=== PATIENT | female | born 1950 | race Caucasian/White ===

== ENCOUNTER → 2023-08-09 12:54 | Outpatient (REF) | payer MEDICARE, OTHER, SELFPAY | LOC: RSP 12:54 | PROVIDERS: ATTENDING PHYSICIAN Internal Medicine Pulmonary Disease; FAMILY PHYSICIAN Internal Medicine | DX: J84.9 Interstitial pulmonary disease, unspecified (principal); J96.11 Chronic respiratory failure with hypoxia | CPT/HCPCS: 94727; 88738; 94010; 94761 ==

== ENCOUNTER → 2024-04-04 11:01 | Outpatient (REF) | payer MEDICARE, OTHER, SELFPAY | LOC: HWRAD 11:01 | PROVIDERS: ATTENDING PHYSICIAN Internal Medicine Pulmonary Disease; FAMILY PHYSICIAN Family Medicine | DX: J84.9 Interstitial pulmonary disease, unspecified (principal); J84.10 Pulmonary fibrosis, unspecified | CPT/HCPCS: 71250 ==

== ENCOUNTER → 2024-04-29 12:31 | Outpatient (REF) | payer MEDICARE, OTHER, SELFPAY | LOC: RSP 12:31 | PROVIDERS: ATTENDING PHYSICIAN Internal Medicine Pulmonary Disease; FAMILY PHYSICIAN Family Medicine | DX: J84.9 Interstitial pulmonary disease, unspecified (principal); J84.10 Pulmonary fibrosis, unspecified | CPT/HCPCS: 94727; 88738; 94010; 94761 ==

== ENCOUNTER → 2024-05-05 11:19 | Outpatient (REF) | payer MEDICARE, OTHER, SELFPAY | LOC: REG 11:19 | PROVIDERS: ATTENDING PHYSICIAN Nurse Practitioner Family; FAMILY PHYSICIAN Family Medicine; OTHER PHYSICIAN Internal Medicine Cardiovascular Disease | DX: I27.20 Pulmonary hypertension, unspecified (principal); E78.2 Mixed hyperlipidemia; I27.29 Other secondary pulmonary hypertension; J84.112 Idiopathic pulmonary fibrosis; J84.9 Interstitial pulmonary disease, unspecified; M34.9 Systemic sclerosis, unspecified; Z99.81 Dependence on supplemental oxygen | CPT/HCPCS: 93005 ==

== ENCOUNTER → 2024-06-19 10:58 | Outpatient (REF) | payer MEDICARE, OTHER, SELFPAY | LOC: RAD 10:58 | PROVIDERS: ATTENDING PHYSICIAN Physician Assistant; FAMILY PHYSICIAN Family Medicine | DX: M34.9 Systemic sclerosis, unspecified (principal); J84.9 Interstitial pulmonary disease, unspecified | CPT/HCPCS: 71046 ==

== ENCOUNTER 2024-07-31 13:15 | Outpatient (RCR) | payer MEDICARE, OTHER, SELFPAY | END 2024-08-01 11:31 | disposition home or self-care (01) | LOC: PURB 13:15 | PROVIDERS: ATTENDING PHYSICIAN Internal Medicine Pulmonary Disease; FAMILY PHYSICIAN Family Medicine | DX: J84.10 Pulmonary fibrosis, unspecified (principal); J96.11 Chronic respiratory failure with hypoxia; G47.33 Obstructive sleep apnea (adult) (pediatric) | CPT/HCPCS: G0237; G0239 ==

== ENCOUNTER 2024-08-28 13:15 | Outpatient (RCR) | payer MEDICARE, OTHER, SELFPAY | END 2024-08-29 10:17 | disposition home or self-care (01) | LOC: PURB 13:15 | PROVIDERS: ATTENDING PHYSICIAN Internal Medicine Pulmonary Disease; FAMILY PHYSICIAN Family Medicine | DX: J84.9 Interstitial pulmonary disease, unspecified (principal) | CPT/HCPCS: G0239 ==

== ENCOUNTER 2024-09-23 13:15 | Outpatient (RCR) | payer MEDICARE, OTHER, SELFPAY | END 2024-09-29 09:21 | disposition home or self-care (01) | LOC: PURB 13:15 | PROVIDERS: ATTENDING PHYSICIAN Internal Medicine Pulmonary Disease; FAMILY PHYSICIAN Family Medicine | DX: J84.9 Interstitial pulmonary disease, unspecified (principal) | CPT/HCPCS: G0239 ==

== ENCOUNTER 2024-10-02 13:15 | Outpatient (RCR) | payer MEDICARE, OTHER, SELFPAY | END 2024-10-22 13:04 | disposition home or self-care (01) | LOC: PURB 13:15 | PROVIDERS: ATTENDING PHYSICIAN Internal Medicine Pulmonary Disease; FAMILY PHYSICIAN Family Medicine | DX: J84.9 Interstitial pulmonary disease, unspecified (principal) | CPT/HCPCS: G0239 ==